=== PATIENT | male | born 1955 ===

== ENCOUNTER 2020-06-03 13:39 | Emergency (ER) | payer OTHER ==
[~2020-06-03] VITALS: Ht 177.8 cm; Wt 81.6 kg
[~2020-06-03 13:39] MED LIST: ALTACE2.5 MG; ATORVASTATIN CA10 MG; NORVASC10 MG
[2020-06-03] MEDS ORDERED: ALTACE5 MG (14:09)
== END 2020-06-03 17:43 | disposition home or self-care (01) ==
LOC: ER 13:39
DX: A90 Dengue fever [classical dengue] (principal)

== ENCOUNTER 2020-06-04 16:46 | Emergency (ER) | payer OTHER ==
[~2020-06-04] VITALS: Ht 177.8 cm; Wt 81.6 kg
[~2020-06-04 16:46] MED LIST changes: +ALTACE5 MG
== END 2020-06-04 18:43 | disposition home or self-care (01) ==
LOC: ER 16:46
DX: D69.49 Other primary thrombocytopenia (principal)

== ENCOUNTER 2020-12-06 09:03 | Emergency (ER) | payer OTHER ==
[~2020-12-06] VITALS: Ht 177.8 cm; Wt 81.6 kg
[2020-12-06] MEDS ORDERED: ONE-DAILY MULT1 EAC1 PO (15:04)
[2020-12-06] MEDS ORDERED: KETO10TA2 PO (15:04)
== END 2020-12-06 15:36 | disposition home or self-care (01) ==
LOC: ER 09:03
DX: B34.9 Viral infection, unspecified (principal); M25.59 Pain in other specified joint; Z03.818 Encounter for observation for suspected exposure to other biological agents ruled out

== ENCOUNTER 2023-08-06 06:00 | Day surgery (SDC) | payer OTHER ==
[~2023-08-06] VITALS: Ht 177.8 cm; Wt 81.6 kg
[~2023-08-06 06:00] MED LIST changes: +ADULT LOW DOSE81 M1 PO; +KETO10TA2 PO; +LIPIT PO; +ONE-DAILY MULT1 EAC1 PO
== END 2023-08-06 12:05 | disposition home or self-care (01) ==
LOC: CIR.AMB 06:00
PROVIDERS: ATTEND Orthopaedic Surgery Hand Surgery
DX: G56.01 Carpal tunnel syndrome, right upper limb (principal); E11.9 Type 2 diabetes mellitus without complications; E78.00 Pure hypercholesterolemia, unspecified; Z20.822 Contact with and (suspected) exposure to COVID-19; I10 Essential (primary) hypertension; Z88.0 Allergy status to penicillin

== ENCOUNTER 2025-06-28 05:21 | Day surgery (SDC) | payer OTHER ==
[2025-06-23 08:31] LABS: BASO % 0.5 % (0.1-1.2); EOS # 0.23 (0.04-0.54); EOS % 4.1 % (0.7-7.0); LYMPH # 1.09 (1.18-3.74); LYMPH % 19.5 % (19.3-53.1); MEAN PLATELET VOLUME 11.70 fl (9.4-12.4); MONO # 0.61 (0.24-0.82); MONO % 10.9 % (4.7-12.5); NEUT # 3.63 (1.56-6.13); NEUT % 64.8 % (34.0-71.1); RED CELL DISTRIBUTION WIDTH 14.2 % (11.6-14.4)
[2025-06-23 08:36] LABS: URINE APPEARANCE Clear; URINE BILIRRUBIN Negative (NEGATIVE); URINE BLOOD Small; URINE COLOR Yellow; URINE GLUCOSE Negative (NEGATIVE); URINE KETONE Negative (NEGATIVE); URINE LEUKOCYTE Negative; URINE NITRATE Negative; URINE PROTEIN Negative (NEGATIVE); URINE UROBILINOGEN 0.2 E.U./dl
[2025-06-23 08:41] LABS: URINE BACTERIA 7.1 uL (0.0-1933); URINE RBC 13.0 uL (0.0-20.8); URINE WBC 2.7 uL (0.0-23.2)
[2025-06-23 08:45] LABS: INR 1.0
[2025-06-23 08:46] LABS: URINE CAST 0.00 uL (0.0-1.40); URINE EPITHELIAL CELLS 0.7 uL (0.0-38.8)
[2025-06-23 09:44] LABS: ALT/SGPT 36.0 U/L (12-78); AST/SGOT 26.0 U/L (15-37); BILIRUBIN TOTAL 0.89 mg/dL (0.3-1.2); BUN CREA RATIO 22.0 (7.0-25.0); CREATININE SERUM 0.96 mg/dL (0.70-1.30); GFR 77.43; GLOBULINA 3.0 G/DL (2.4-3.5); GLUCOSE FASTING 79.0 mg/dL (65-100); OSMOLALITY SERUM 289.0 MOSM/KG (275-295)
[2025-06-23 09:51] VITALS: BP 149/70
[~2025-06-28] VITALS: Ht 154.9 cm; Wt 81.6 kg
[~2025-06-28 05:21] MED LIST changes: +LIPITOR20 MG PO; +RAYOS5 MG PO
[2025-06-28] MEDS ORDERED: CIPROFLOXACIN IN 5 % DEXTROSE 400 MG/200 ML PIGGYBAG IV ONE (07:30)
[2025-06-28] MEDS ORDERED: MORPHINE SULFATE 4 MG/ML VIAL IV ONE (11:10)
== END 2025-06-28 15:20 | disposition home or self-care (01) ==
LOC: CIR.AMB 05:21
PROVIDERS: ATTEND Surgery
DX: K40.20 Bilateral inguinal hernia, without obstruction or gangrene, not specified as recurrent (principal); Z88.0 Allergy status to penicillin